=== PATIENT | male | born 1995 | race Caucasian/White ===

== ENCOUNTER 2017-12-27 17:56 | Observation (INO) | payer BC ==
[2017-12-27] MEDS ORDERED: ONDANSETRON 4 MG/2 ML VIAL IVP ONE (18:07)
[2017-12-27] MEDS ORDERED: NS 1,000 ML IV ONE (18:07)
--- NOTE | 2017-12-27 18:10 | EDPHY ---
H & P Stated Complaint: RLQ pain with N/V since last night. Time Seen by Provider: 12/27/17 18:00 HPI/ROS: Chief Complaint: Abdominal pain HPI: Healthy 22-year-old male woke at midnight this morning with pain in his central abdomen. Had some nausea vomiting since then. Pain is migrated to his right lower abdomen. He is continue of some nausea vomiting. No diarrhea. No fevers or chills. No past medical history. No surgical history. Does not have a history of similar symptoms in the past. Pain is about an 8/10. Is worse with movement. ROS: 10 point Review of Systems is negative except as noted in the HPI. PMH: None Social History: No smoking, occasional alcohol, occasional marijuana Family History: non-contributory Physical Exam: Gen: Awake, Alert, No Distress HEENT: Nose: no rhinorrhea Eyes: PERRLA, EOMI Mouth: Moist mucosa Neck: Supple, no JVD Chest: nontender, lungs clear to auscultation Heart: S1, S2 normal, no murmur Abd: Soft, patient has right lower quadrant tenderness with guarding, positive Rovsing sign Back: no CVA tenderness, no midline tenderness Ext: no edema, non-tender Skin: no rash Neuro: CN II-XII intact, Sensation grossly intact, Strength 5/5 in bilateral upper and lower extremities - Personal History Current Tetanus Diphtheria and Acellular Pertussis (TDAP): Yes - Medical/Surgical History Hx Asthma: No Hx Chronic Respiratory Disease: No Hx Diabetes: No Hx Cardiac Disease: No Hx Renal Disease: No Hx Cirrhosis: No Hx Alcoholism: No Hx HIV/AIDS: No Hx Splenectomy or Spleen Trauma: No Other PMH: Denies - Social History Smoking Status: Never smoked Constitutional: Initial Vital Signs Temperature (C) 36.4 C 12/27/17 17:58 Heart Rate 92 12/27/17 17:58 Respiratory Rate 16 12/27/17 17:58 Blood Pressure 102/83 H 12/27/17 17:58 O2 Sat (%) 97 12/27/17 17:58 O2 Delivery Mode Room Air Allergies/Adverse Reactions: No Known Allergies Allergy (Unverified 12/27/17 18:01) Home Medications: Medication Instructions Recorded NK [No Known Home Meds] 12/27/17 Medical Decision Making ED Course/Re-evaluation: 22-year-old with right lower quadrant tenderness rebound guarding and Rovsing sign. Ultrasound is consistent with acute appendicitis. I have discussed with Dr. Knott, general surgery. He will plan to take the patient to the operating room. I have ordered ceftriaxone IV - Data Points Laboratory Results: Laboratory Results 12/27/17 18:10 12/27/17 18:10 12/27/17 12/27/17 18:10 18:10 WBC 13.56 10^3/uL H 10^3/uL (3.80-9.50) RBC 5.26 10^6/uL 10^6/uL (4.40-6.38) Hgb 17.1 g/dL g/dL (13.7-17.5) Hct 48.5 % % (40.0-51.0) MCV 92.2 fL fL (81.5-99.8) MCH 32.5 pg pg (27.9-34.1) MCHC 35.3 g/dL g/dL (32.4-36.7) RDW 12.8 % % (11.5-15.2) Plt Count 225 10^3/uL 10^3/uL (150-400) MPV 9.9 fL fL (8.7-11.7) Neut % (Auto) 76.4 % H % (39.3-74.2) Lymph % (Auto) 12.1 % L % (15.0-45.0) [place] % (Auto) 9.7 % % (4.5-13.0) Eos % (Auto) 1.0 % % (0.6-7.6) Baso % (Auto) 0.3 % % (0.3-1.7) Nucleat RBC Rel Count 0.0 % % (0.0-0.2) Absolute Neuts (auto) 10.37 10^3/uL H 10^3/uL (1.70-6.50) Absolute Lymphs (auto) 1.64 10^3/uL 10^3/uL (1.00-3.00) Absolute Monos (auto) 1.31 10^3/uL H 10^3/uL (0.30-0.80) Absolute Eos (auto) 0.13 10^3/uL 10^3/uL (0.03-0.40) Absolute Basos (auto) 0.04 10^3/uL 10^3/uL (0.02-0.10) Absolute Nucleated RBC 0.00 10^3/uL 10^3/uL (0-0.01) Immature Gran % 0.5 % % (0.0-1.1) Immature Gran # 0.07 10^3/uL 10^3/uL (0.00-0.10) Sodium 137 mEq/L mEq/L (135-145) Potassium 3.8 mEq/L mEq/L (3.3-5.0) Chloride 100 mEq/L mEq/L (97-110) Carbon Dioxide 26 mEq/l mEq/l (22-31) Anion Gap 11 mEq/L mEq/L (8-16) BUN 9 mg/dL mg/dL (7-23) Creatinine 0.9 mg/dL mg/dL (0.7-1.3) Estimated GFR > 60 Glucose 96 mg/dL mg/dL (70-100) Calcium 10.4 mg/dL mg/dL (8.5-10.4) Medications Given: Discontinued Medications Sodium Chloride (Ns) 1,000 mls @ 0 mls/hr IV ONCE ONE; Wide Open PRN Reason: Protocol Stop: 12/27/17 18:08 Last Admin: 12/27/17 18:16 Dose: 1,000 mls Morphine Sulfate (Morphine) 4 mg IVP ONCE ONE Stop: 12/27/17 18:08 Last Admin: 12/27/17 18:16 Dose: 4 mg Ondansetron HCl (Zofran) 4 mg IVP EDNOW ONE Stop: 12/27/17 18:08 Last Admin: 12/27/17 18:16 Dose: 4 mg Departure - Departure Disposition: [facility] Inpatient Acute Clinical Impression: Acute appendicitis Condition: Fair Referrals: NONE *PRIMARY CARE P,. [Primary Care Provider] - As per Instructions
[2017-12-27 18:23] LABS: PLATELET COUNT 225 10^3/uL (150-400)
[2017-12-27] MEDS ORDERED: HEPARIN 5,000 UNIT/0.5 ML INJ ONE (19:44)
[2017-12-27] MEDS ORDERED: ceFAZolin 1 GM/5 ML SYR ONE ×2 (19:46→19:48)
--- NOTE | 2017-12-27 20:07 | PDANEPAE ---
ANE Past Medical History - Cardiovascular History Hx Hypertension: No Hx Arrhythmias: No Hx Chest Pain: No Hx Coronary Artery / Peripheral Vascular Disease: No Hx CHF / Valvular Disease: No Hx Palpitations: No - Pulmonary History Hx COPD: No Hx Asthma/Reactive Airway Disease: No Hx Recent Upper Respiratory Infection: No Hx Oxygen in Use at Home: No Hx Sleep Apnea: No - Endocrine History Hx Diabetes: No Hypothyroid: No Hyperthyroid: No Obesity: no - Renal History Hx Renal Disorders: No - Liver History Hx Hepatic Disorders: No - Neurological & Psychiatric Hx Hx Neurological and Psychiatric Disorders: No - Cancer History Hx Cancer: No - Congenital Disorder History Hx Congenital Disorders: No - GI History GERD: no Hx Gastrointestinal Disorders: No - Surgical History Prior Surgeries: wisdom teeth ANE Review of Systems Review of Systems: - Exercise capacity Exercise capacity: >=4 METS METS (RN): 6 METS ANE Patient History - Allergies Allergies/Adverse Reactions: No Known Allergies Allergy (Unverified 12/27/17 18:01) - Home Medications Home Medications: Multivitamins [Multivitamin (*)] 1 each PO DAILY 12/27/17 [Last Taken Unknown] - Anes Hx Anes Hx: no prior problems - Smoking Hx Smoking Status: Never smoked - Alcohol Use Alcohol Use: Occasionally - Family Anes Hx Family Anes Hx: neg - N/A ANE Labs/Vital Signs - Labs Result Diagrams: 12/27/17 18:10 12/27/17 18:10 - Vital Signs Blood Pressure: 134/69 Heart Rate: 85 Respiratory Rate: 16 O2 Sat (%): 96 Height: 177.8 cm Weight: 80.286 kg ANE Physical Exam - Airway Neck exam: FROM Mallampati Score: Class 1 Mouth exam: normal dental/mouth exam - Pulmonary Pulmonary: no respiratory distress, no rales or rhonchi, clear to auscultation - Cardiovascular Cardiovascular: regular rate and rhythym, no murmur, rub, or gallop - ASA Status ASA Status: I, E ANE Anesthesia Plan Anesthesia Plan: general endotracheal anesthesia Total IV Anesthesia: No
[2017-12-27] MEDS ORDERED: ERTAPENEM 1 GM in NS 100 ML IV ONE (20:12)
[2017-12-27] MEDS ORDERED: MIDAZOLAM 2 MG/2 ML VIAL IVP ONE (20:20)
[2017-12-27] MEDS ORDERED: SUCCINYLCHOLINE CHLORIDE 200 MG/10 ML SYR IVP ONE (20:28)
[2017-12-27] MEDS ORDERED: KETOROLAC 30 MG/1 ML SDV ONE (20:28)
[2017-12-27] MEDS ORDERED: ROCURONIUM 50 MG/5 ML VIAL ONE (20:28)
[2017-12-27] MEDS ORDERED: DEXAMETHASONE 4 MG/ML VIAL ONE (20:28)
[2017-12-27] MEDS ORDERED: fentaNYL 100 MCG/2 ML INJ ONE ×2 (20:29→21:54)
[2017-12-27] MEDS ORDERED: REMIFENTANIL HCL 1 MG VIAL ONE (20:30)
[2017-12-27] MEDS ORDERED: LR 1,000 ML IV SCH (20:30)
[2017-12-27] MEDS ORDERED: ACETAMINOPHEN 500 MG TAB PO SCH (20:30)
[2017-12-27] MEDS ORDERED: PROPOFOL/EMULSION 500 MG/50 ML BOTTLE IV ONE (20:30)
[2017-12-27] MEDS ORDERED: ONDANSETRON 4 MG/2 ML VIAL IVP PRN ×2 (20:30→21:02)
[2017-12-27] MEDS ORDERED: PROPOFOL 200 MG/20 ML VIAL ONE (20:42)
[2017-12-27] MEDS ORDERED: LIDOCAINE 2% 5 ML SDV ONE (20:42)
--- NOTE | 2017-12-27 20:54 | GHP ---
[f rep st] PREOP HISTORY AND PHYSICAL DATE OF ADMISSION: 12/27/2017 ADMITTING DIAGNOSIS: Acute appendicitis. HISTORY: The patient is a 22-year-old white male who went to sleep last night at 10:30. At about midnight, he began complaining of abdominal aches and generalized sweating. He had nausea and vomited once. He got up and went into the bathroom, but only urinated. He slept poorly throughout the night. He woke with his alarm at 6:45 and then realized he had persistent abdominal pain. He had nausea, pain, and vomiting. He called work and called off. He got an electrolyte drink. Tried that. He still felt nauseous. He went back to sleep at 10 in the morning and slept till 5. Moved his bowels once during the course of the day and that did not improve his situation. He came to the ER for evaluation. In the ER, he was seen by Dr. Stevie Magdaleno. His white count was found to be elevated at 13.5 and with the history, an ultrasound was performed which was consistent with acute appendicitis. I was asked to come see the patient. ADDITIONAL HISTORY: There is no history of recent upper respiratory tract infection or diarrhea in the last 2 weeks. He did travel to [facility] and around [place] for the 1st quarter of this year. He had a version of a "Z-David" in July. There was no history of inflammatory bowel disease. Interestingly, he has had several prior similar episodes. The last one was about 6 months ago. He has had no prior surgery. SOCIAL HISTORY: He has had very minimal nicotine input. He drinks , Wednesday, Wednesday, and approximately 10 drinks a night. ALLERGIES: He has no known drug allergies. MEDICATIONS: He does not take medications. PAST SURGICAL HISTORY: He has had wisdom tooth extraction. PAST MEDICAL HISTORY: No history of rheumatic fever, tuberculosis, hepatitis, or transfusions. REVIEW OF SYSTEMS: He has had 4 concussions (plays rugby). REVIEW OF SYSTEMS: Otherwise quite negative. There are no limits on his activities. No history of steroid use. FAMILY HISTORY: His mother is 55 and alive and well. His father is 55 and alive and well. He has an older sister who is 23 who is alive and well. There are no bleeding disorders, clotting disorders, or difficult anesthesia in the patient's family. PHYSICAL EXAMINATION: VITAL SIGNS: His blood pressure is 102/83 at 92, respirations 16, saturations 97 % on room air. Temperature is 36.4. GENERAL: He is awake and engaging. NEUROLOGIC: There are no focal or lateralizing neurologic findings. There is no supraclavicular, cervical, axillary, or inguinal lymphadenopathy. NECK: Supple. BACK: Unremarkable. LUNGS: Clear to auscultation. CARDIAC: Shows S1, S2 normal, normal split of S2 without murmurs, rubs, or gallops. ABDOMEN: Psoas and obturator signs are negative. Bowel sounds are distinctly hypoactive. With cough he is tender over McBurney point at a 5 on a scale of 1- 10. To palpation on the same scale, left upper quadrant is 1, left mid abdomen is 2, left lower quadrant is 3, epigastrium is 1, periumbilical area is 1, suprapubic area is 2, right upper quadrant is 1, right mid abdomen is 3-4, right lower quadrant is 4-5. LABORATORY DATA: His white blood count is, in fact, 13,500 with 76% neutrophils. Hematocrit is 48. His platelets are 225, creatinine 0.9, BUN of 9 , calcium of 10.4. IMPRESSION: I feel this patient clinically has appendicitis, and that is confirmed by the ultrasound. PLAN: I will plan a laparoscopic appendectomy. I have spoken to his parents. We have talked about an antibiotic approach. I have said that if it works, it works well, but if it fails, it can fail badly. They agree with the plan to proceed with a surgical approach. It will be arranged. /[id number]/MODL MTDD
[2017-12-27] MEDS ORDERED: MEPERIDINE 25 MG/0.5 ML AMP IVP PRN (21:02)
[2017-12-27] MEDS ORDERED: oxyCODONE IR 5 MG TAB PO PRN (21:02)
[2017-12-27] MEDS ORDERED: NALOXONE HCL 0.4 MG/ML INJ IVP PRN (21:02)
[2017-12-27] MEDS ORDERED: PHENYLEPHRINE HCL 100 MCG/ML SYR IVP PRN (21:02)
[2017-12-27] MEDS ORDERED: LR 500 ML IV PRN (21:02)
[2017-12-27] MEDS ORDERED: PROMETHAZINE HCL 25 MG/ML INJ IVP PRN (21:02)
[2017-12-27] MEDS ORDERED: HYDROmorphONE/DILAUDID 1 MG/ML INJ IVP PRN (21:02)
[2017-12-27] MEDS ORDERED: ACETAMINOPHEN 500 MG TAB PO PRN (21:02)
[2017-12-27] MEDS ORDERED: HYDROCODONE/APAP 5/325 TAB PO PRN (21:02)
[2017-12-27] MEDS ORDERED: SUGAMMADEX SODIUM 200 MG/2 ML VIAL IVP ONE (21:15)
--- NOTE | 2017-12-27 21:46 | POSTOPPROG ---
Post Op Note Date of Operation: 12/27/17 Surgeon: Paul Knott Anesthesia: GET(General Endotracheal) Pre-op Diagnosis: acute appendicitis Post-op Diagnosis: acute unruptured appendicitis with mesenteric adenitis Indication: acute appendicitis Procedure: laparoscopic appendectomy Findings: acute unruptured appendicitis with mesenteric adenitis Inf/Abcess present in the surg proc area at time of surgery?: No EBL: Minimal Total fluids administered: 1999 since ER admission Complications: none Specimen(s): appendix
[2017-12-27] MEDS: fentaNYL 100 MCG/2 ML INJ IVP PRN ×2 (21:56→22:09)
--- NOTE | 2017-12-27 22:44 | GOP ---
[f rep st] OPERATIVE REPORT DATE OF OPERATION: 12/27/2017 SURGEON: Paul Knott MD ANESTHESIA: General endotracheal. PREOPERATIVE DIAGNOSIS: Acute appendicitis. POSTOPERATIVE DIAGNOSIS: Acute, unruptured appendicitis with mesenteric adenitis. PROCEDURE PERFORMED: Laparoscopic appendectomy. FINDINGS: Acute, unruptured appendicitis with mesenteric adenitis. SPECIMENS: Appendix. ESTIMATED BLOOD LOSS: Minimal. He has received 2000 cc from of fluid from ER admission through surgery. INDICATIONS: Acute appendicitis. DESCRIPTION OF PROCEDURE: The patient was placed on the operating table in the supine position. After induction of adequate general endotracheal anesthesia, his abdomen was clipped, prepped, and draped. A surgical time-out was carried out and agreed to by all members of the operative team. A curvilinear incision was planned in the infraumbilical fold. An oblique 5 mm incision was planned in the left lower quadrant and a transverse 5 mm incision was planned in the suprapubic region. All 3 incisions were made partially through the dermis sharply and incisions deepened with Bovie electrocautery and , at the umbilical site, a spreading technique. The anterior rectus sheath was elevated between Allis clamps. The fascia was divided in the midline sharply. A pursestring in remote PDS was placed. A disposable 11-12 mm Silvino trocar was positioned. Intra-abdominal insufflation was carried out to 15 mmHg at high flow. Inspection reveals no fluid in the pelvis. The omentum is densely adherent to the tip of the appendix. This was carefully peeled back. Photographic documentation was carried out. The meso-appendix was carefully divided down to its base using a Harmonic scalpel. The appendiceal base was mobilized. The appendix was taken with a cuff of cecum. Two applications of EndoGIA stapler were needed. There was a small amount of bleeding at the junction of the 2 staple lines. This was elevated and secured with an Endoloop. Irrigation was carried out with heparin and Ancef-containing irrigant. Once I am assured that hemostasis is excellent, ports were removed under direct vision. Inverted simple suture of #0 PDS was placed in the midpoint of the infraumbilical midline fascial defect. That was tied and then the pursestring was tied. The subcutaneous tissue was irrigated with heparin and Ancef-containing irrigant. No bleeding was identified. The skin was closed at all 3 sites with inverted simple sutures of 4-0 Vicryl. Mastisol and Steri-Strips were placed, and Band-Aids were positioned. The patient was transferred to recovery in stable and satisfactory condition. COMPLICATIONS: None. DRAINS: None. /[id number]/MODL MTDD
[2017-12-27] MEDS: HYDROmorphONE/DILAUDID 1 MG/ML INJ IVP PRN ×2 (22:51→23:51)
[2017-12-27] MEDS: ACETAMINOPHEN 500 MG TAB PO SCH (22:52)
--- NOTE | 2017-12-28 00:14 | POSTANESTH ---
Post Anesthetic Evaluation Cardiovascular Status: Normal, Stable Respiratory Status: Normal, Stable Level of Consciousness/Mental Status: Can Participate in Eval Pain Control: Adequate, Prn Tx Ordered Nausea/Vomiting Control: Adequate, Prn Tx Ordered Complications Possibly Related to Anesthesia: None Noted
[2017-12-28] MEDS: KETOROLAC 15 MG/1 ML SDV IVP SCH ×2 (04:03→09:11)
[2017-12-28] MEDS: ACETAMINOPHEN 500 MG TAB PO SCH (06:26)
[2017-12-28 11:48] VITALS: BP 106/70
--- NOTE | 2017-12-28 13:03 | SOAPPROG ---
SOAP Progress Note Assessment/Plan: Assessment: POSTOP APPY/ DOING WELL/AFEBRILE/EATING WELL/ABDOMEN SOFT NONTENDER/URINE OUTPUT OKAY Plan: HOME/FOLLOW-UP IN THE OFFICE IN 1 WEEK/INSTRUCTIONS GIVEN 12/28/17 13:02 Objective: Vital Signs Temp Pulse Resp BP Pulse Ox 36.7 C 74 16 106/70 96 12/28/17 11:46 12/28/17 11:46 12/28/17 11:46 12/28/17 11:46 12/28/17 11:46 12/27/17 12/28/17 12/29/17 05:59 05:59 05:59 Intake Total 3150 Output Total 15 Balance 3135 ICD10 Worksheet Patient Problems: Problems Problem Status Onset Acute appendicitis Acute
--- NOTE | 2017-12-28 14:55 | ASDISCHSUM ---
Discharge Information Plan Status:Home with No Needs Medically Cleared to Leave:12/28/2017 Discharge Date:12/28/2017 01:40 PM CM D/C Disposition:Home, Routine, Self-Care ADT D/C Disposition:Home, Routine, Self-Care Projected Discharge Date:12/28/2017 01:40 PM Transportation at D/C:Family Discharge Delay Reason: Follow-Up Date:12/28/2017 01:40 PM Discharge Slot: Final Diagnosis: Placement Information Patient Contact Information Contact Name:SHANEKA Relationship:Mother Address: City: [facility] Phone: [facility]/[place] Code: Email: Financial Information Financial Class:BCOP Primary Plan Desc: OUT OF STATE [facility] Primary Plan Number:[id number] Secondary Plan Desc: Secondary Plan Number: Assessment Information Case Management Discharge Plan Note Case Management Discharge Discharge Order Complete? Answers: Yes Patient to Obtain Answers: via Family Medications Transportation Arranged Answers: Family/Friends Discharge Comments Notes: Pt s/p lap appy and discharged home today with no CM needs. Date Signed: 12/28/2017 02:54 PM Electronically Signed By:SIMEON Alejandro Intervention Information
--- NOTE | 2017-12-28 14:58 | ASMTLACE ---
LACE Length of stay for Answers: Less than 1 day current admission Acuity / Level of Answers: No Care: Did the patient have an inpatient admission? # of Emergency department Answers: 1-2 visits in the last 6 months Score: 1 Date Signed: 12/28/2017 02:57 PM Electronically Signed By:SIMEON Alejandro
== END 2017-12-28 13:40 | disposition home or self-care (01) ==
LOC: F3E 22:37
PROVIDERS: ADMIT Surgery; ATTEND Surgery
PROC: 0DTJ4ZZ Resection of Appendix, Percutaneous Endoscopic Approach (ICD-10-PCS; principal; 2017-12-27 20:15)
DX: K35.80 Unspecified acute appendicitis (principal)
CPT/HCPCS: 44970; 76705; G0378; 96365; J0330; J0696; J1100; J1170; J1335; J1644; J1885; J2250; J2270; J2405; J2704; J3010

== ENCOUNTER 2018-02-19 12:03 | Emergency (ER) | payer BC ==
--- NOTE | 2018-02-19 13:21 | EDPHY ---
General Time Seen by Provider: 02/19/18 13:13 Narrative: CHIEF COMPLAINT: Fall last night, foot pain HISTORY OF PRESENT ILLNESS: Patient presents with complaints of pain in his feet after a fall last night. He says that he fell for approximately the height of a balcony. He landed on his left foot and that his right foot. He denies any head strike or loss of conscious. He has complaints of pain in the left heel, left foot and right foot. No numbness or tingling. No weakness. The left heel is so severe that he is unable to put weight on it. No chest, back or abdominal pain. Attempted to bear weight this morning but the pain is more severe. No other associated complaints or modifying factors ESTABLISHED ORTHOPEDIST: None REVIEW OF SYSTEMS: Ten systems reviewed and are negative unless otherwise noted in the HPI PAST MEDICAL HISTORY: Uncomplicated PAST SURGICAL HISTORY: No surgical history SOCIAL HISTORY: [employer] student originally from [place] FAMILY HISTORY: EXAMINATION: General Appearance: Alert, no distress HEENT: Head is normocephalic and atraumatic. Pupils equal round reactive. No depression or deformity. No Bradley sign or raccoon eyes. No signs of trauma. Neck: Supple nontender. Midline trachea. No crepitus, step-off deformity. Painless range of motion all planes Cardiovascular: Regular rhythm. No murmur Pulses normal throughout. Brisk cap refill Respiratory: Lungs clear in all daniel. Neurological: A&O, light sensory symmetric, knee, ankle and great toe strength symmetric Skin: Warm and dry, no rash. No petechiae or purpura no puncture. No ecchymosis. Extremities: Moderate tenderness to the left calcaneus. Minimal tenderness of the left midfoot. There is moderate tenderness of the right midfoot but no tenderness of the right calcaneus. Range of motion of the ankles, knees and hips symmetric and without deficit. All compartments are soft lower extremities without evidence of compartment syndrome. No punctures or lacerations Psychiatric: Mood and affect normal DIFFERENTIAL DIAGNOSES: Including but not limited to calcaneus fracture, sprain, strain, bone bruise, contusion, hematoma MDM: 1:15 p.m. Fall from 1 story height with severe pain on the left calcaneus. X-ray does have a small irregular contour to the anterior portion of the calcaneus. This clinically correlates with this pain, thus I have ordered CT scan to further delineate. I do not appreciate any other abnormalities on the remaining scans. He has minimal pain at rest and no pain with weight-bearing on the right foot at this time. 2:45 p.m. Notified by radiologist Dr. Gallegos. There is a small, nondisplaced compression fracture of the left calcaneus. No other acute findings noted. 2:50 p.m. Case discussed with radiologist. There is is a small area of compression fracture of the left calcaneus that was not well visualized on the plain film. No other acute findings. 3:00 p.m. Case discussed with on-call orthopedist Dr. Poole. He recommends the patient be placed in a posterior splint, nonweightbearing status and be seen in the clinic next week. I discussed this with the patient. He was reluctant at 1st but agrees to proceed with this. He understands the risks of weight-bearing on the lower extremity and agrees to remain nonweightbearing. Crutches provided. 3:20 p.m. Patient re-evaluated. Splint is in place in remains neuro intact. All compartments soft. ED precautions discussed. We discussed rest, ice, elevation. I provided short course of pain medication. He is discharged home stable condition. SUPERVISION: This patient was independently evaluated without direct involvement of or examination by the attending physician. - History Smoking Status: Current some day smoker - Objective Vital Signs: Initial Vital Signs Temperature (C) 97.9 F 02/19/18 12:18 Heart Rate 65 02/19/18 12:18 Respiratory Rate 18 02/19/18 12:18 Blood Pressure 114/57 L 02/19/18 12:18 O2 Sat (%) 96 02/19/18 12:18 O2 Delivery Mode Room Air Allergies/Adverse Reactions: No Known Allergies Allergy (Verified 02/19/18 12:17) Home Medications: Medication Instructions Recorded oxyCODONE HCL/ACETAMINOPHEN 1 each PO Q4-6PRN PRN #9 tablet 02/19/18 [Percocet 5-325 mg Tablet] Departure - Departure Disposition: Home, Routine, Self-Care Clinical Impression: Closed nondisplaced fracture of left calcaneus Qualifiers: Encounter type: initial encounter Calcaneus location: anterior process Qualified Code(s): S92.025A - Nondisplaced fracture of anterior process of left calcaneus, initial encounter for closed fracture Condition: Good Instructions: Calcaneal Fracture (ED) Additional Instructions: 1. Strict nonweightbearing until seen by Orthopedics for definitive care 2. Keep your splint in place at all times. Cover this when you shower 3. Pain medication as prescribed as needed 4. Ice and elevate the extremity often Referrals: Paul Poole MD [Medical Doctor] - As per Instructions Prescriptions: oxyCODONE HCL/ACETAMINOPHEN [Percocet 5-325 mg Tablet] 1 each PO Q4-6PRN PRN #9 tablet PRN Reason: Pain, Breakthrough
[2018-02-19 15:17] VITALS: BP 118/62
== END 2018-02-19 15:18 | disposition home or self-care (01) ==
PROC: 2W3TX1Z Immobilization of Left Foot using Splint (ICD-10-PCS; principal; 2018-02-19)
DX: S92.025A Nondisplaced fracture of anterior process of left calcaneus, initial encounter for closed fracture (principal); W13.0XXA Fall from, out of or through balcony, initial encounter; Y92.9 Unspecified place or not applicable; F17.200 Nicotine dependence, unspecified, uncomplicated